=== PATIENT | male | born 1970 | race Caucasian/White ===

== ENCOUNTER 2025-03-04 23:23 | Inpatient (IN) | payer BC, SELFPAY ==
[2025-03-04 18:52] VITALS: BP 159/93
[2025-03-04 19:14] LABS: Hematocrit 46.6 % (39.0-52.0); Hemoglobin 15.9 g/dL (13.0-18.0); Mean Corp Hgb Conc. 34.1 g/dL (33.0-37.0); Mean Corpuscular Volume 86.8 fL (80.0-94.0); Nucleated Red Blood Cells % 0 % (-); Platelet Count 211 10^3/uL (130-400); Red Cell Dist. Width 12.0 % (11.5-14.5)
[2025-03-04 19:25] LABS: INR 0.94; PT 13.1 Sec (11.4-14.6)
[2025-03-04 19:35] LABS: ALT (SGPT) 29 U/L (0-50); AST (SGOT) 20 U/L (17-59); Albumin 4.9 g/dl (3.5-5.0); Alkaline Phosphatase 54 U/L (38-126); Blood Urea Nitrogen 14 mg/dl (9-20); Calcium 9.7 mg/dl (8.4-10.2); Carbon Dioxide 29 mmol/L (22-30); Chloride 102 mmol/L (98-107); Glucose 145 mg/dl (70-99); Potassium 4.3 mmol/L (3.5-5.1); Sodium 139 mmol/L (135-145); Total Protein 7.5 g/dl (6.3-8.2); eGFR > 60.00
[2025-03-04 22:06] VITALS: BP 136/82; BMI 22.5
--- NOTE | 2025-03-04 22:40 | ED.SKININJ ---
HPI-Injury
General
Chief Complaint: Skin Problem
Source: patient
Exam Limitations: none
Time Seen by Provider: 03/04/25 22:35
Nursing documentation reviewed up to this point in time: agreed with
History of Present Illness-Injury
Initial Injury comments:
54-year-old male with no significant past medical history states he was wearing flip-flops in the yard 4 days ago around noon he noticed that his left fourth toe became itchy and red. The redness and swelling gradually spread to the 2nd, 3rd and
5th toes. He went to urgent care 2 days ago and was started on doxycycline, he has had total of 6 doses and the area continues to slowly spread. Denies pain, is mildly itchy. Denies fever/chills. Feels well otherwise
He rested with the foot elevated all day yesterday
Past History
Past History
ED Past Medical History: None
ED Past Surgical History: Appendectomy
Social History
Tobacco: Non-smoker
Alcohol: Occasional
Personal:
Living: with family
Employment: Employed
Review of Systems
Review of Systems
Allergies reviewed?: Yes
All Other Systems: ROS reviewed and negative except as documented in HPI and ROS
Constitutional: Denies fever or chills
ABD/GI: Denies nausea
Skin: Reports other (Redness and swelling left foot toes 2 through 5, redness and swelling spreading up the dorsum)
Phy Exam
Physical Exam
Physical Exam:
GENERAL: No acute distress. A&Ox3.
CONSTITUTIONAL: Afebrile.
EYES: clear, conjunctivae normal
ENMT: moist mucus membranes, Pharynx nl
RESPIRATORY: Regular respirations, nonlabored, lungs clear.
CARDIOVASCULAR: Regular rate and rhythm, no murmurs, no rubs.
GI: Soft, nontender, normal BS
MUSCULOSKELETAL: Moves with ease. Well perfused.
SKIN: Warm, dry, pink. Left foot toes 2 through 5 are red, swollen, erythema and swelling spreading up the dorsal aspect of the foot to the ankle. Area marked for observation
PSYCH: Normal mood and affect. Well kept, interactive and appropriate
NEUROLOGIC: Awake, alert and oriented. No focal neurological deficits
Course
Orders/Labs/Results
Orders:
Orders
03/04/25 18:55
Foot, Left 3 View [CR Foot - Left Min 3 Views] Urgent
Comment:
Reason For Exam: cellulitis of the foot
03/04/25 19:04
Complete Blood Count/With Diff Urgent
Comprehensive Metabolic Panel Urgent
Lactic Acid Q4H
Comment: ON ICE, CANCEL 2ND ORDER IF FIRST LACTIC ACID LEVEL <2
Prothrombin Time Urgent
Blood Culture Q20M
ROBY Source: Blood/Venous
Specimen Description:
Comment: Urgent from separate sites. If patient screens positive for possible sepsis
03/04/25 19:20
Blood Culture Q20M
ROYB Source: Blood/Venous
Specimen Description:
Comment: Urgent from separate sites. If patient screens positive for possible sepsis
03/04/25 22:46
Piperacillin/Tazo 3.375 Gram [Zosyn] 3.375 gram in 50 ml IV NOW
Abnormal Lab Results
03/04/25
19:04
Absolute Monos (auto) 0.7 H 10^3/uL
(0.1-0.6)
Lymphocytes % 15.0 L %
(20.5-51.1)
Glucose 145 H mg/dl
(70-99)
03/04/25 19:04
03/04/25 19:04
Vital Signs
Initial and Last Documented VS:
Initial Vital Signs
Temp Pulse Resp BP Pulse Ox
98.7 F 100 18 159/93 98
03/04/25 18:52 03/04/25 18:52 03/04/25 18:52 03/04/25 18:52 03/04/25 18:52
Last Documented Vital Signs
Temp Pulse Resp BP Pulse Ox
98.7 F 100 18 136/82 99
03/04/25 18:52 03/04/25 18:52 03/04/25 18:52 03/04/25 22:06 03/04/25 22:46
MDM/Problems Addressed
Differential Diagnosis Includes:
Affected bug bite, cellulitis
MDM/Problems Addressed:
54-year-old male with no significant past medical history states he was wearing flip-flops in the yard 4 days ago around noon he noticed that his left fourth toe became itchy and red. The redness and swelling gradually spread to the 2nd, 3rd and
5th toes. He went to urgent care 2 days ago and was started on doxycycline, he has had total of 6 doses and the area continues to slowly spread. Denies pain, is mildly itchy. Denies fever/chills. Feels well otherwise
Afebrile, NAD
Afebrile, CBC normal, BNP normal
X-ray foot shows no bony abnormality
*Pulse Oximetry
SaO2: 99
Oxygen Mode of Delivery: Room air
Patient hypoxic: not evaluated
*Critical Care Note
Total Time (30-74mins, 75-104mins- exclusive of procedures): Not Applicable
ED Attending Note
-
Portions of this chart may have been created with voice recognition software.� Occasional wrong word or��sound alike� substitutions may have occurred due to the inherent limitations of voice recognition software.
Discharge Plan
Departure
Patient Disposition: Admit
Date of Disposition: 03/04/25
Time of Disposition: 22:49
Admit to: Med/Surg
Presentation/result/management discussed w/ accepting MD/DO: Hospitalist
Condition: Fair
Discharge Problem:
Cellulitis of left foot
Interventions
Interventions:
*Risk Screen - Suicide Last Done: 03/04/25 18:54
*General Assessment Last Done: 03/04/25 18:54
*Neglect/Abuse Screening Last Done: 03/04/25 18:54
*ED- Fall Risk Assessment Last Done: 03/04/25 22:06
*ED COVID-19 Vaccine History Last Done: 03/04/25 18:54
ED-Skin Assessment Last Done: 03/04/25 22:06
Discharge Date and Time
Print Language: WELSH
--- NOTE | 2025-03-04 22:55 | HPS.HSE ---
Addendum entered and electronically signed by Patrick Noyola MD 03/04/25 23:42:
I saw and examined the patient.
The GEOTHERMAL TECHNICIAN or PA's note was reviewed and I agree with the note.
Comment:
54M with no significant past medical history
Afebrile , WCC 8.2
Not toxic looking
Skin: Warm, IV/Catheter Site and Other (left foot with erythema and warmth to dorsal side of foot and 2nd through 5th toes with spreading towards ankle)
ASSESSMENT & PLAN
Cellulitis of left foot vs infected insect bite
- afebrile WBC 8.2, Neut 71.8
- Lt foot x-ray: No acute osseous abnormality.
- BCx pending
- empiric IV Ancef 1gm q8
- supportive care
DVT Px LMWH
Original Note:
Family Physician
-
Family Physician:
Chief Complaint
-
left foot cellulitis
History of Present Illness
Patient is a 54-year-old male with no significant past medical history who presented to [facility] ED for evaluation of worsening left foot cellulitis. Patient reports he was in yard on Sunday when he noticed some erythema and itchy to his left 4th toe.
He states that erythema and itching spread over the next 24-36 hours when he went to urgent care to be evaluated on Sunday morning and was ordered doxycycline BID, which he reports taking 6 doses. Despite antibotics erythema continues to spread now
from 2nd to 5th toe and significantly up spreading toward ankle. Denies any fever, chills, cough, shortness of breath, chest pain, nausea, vomting, constipation or diarrhea.
Medical History
Past Medical History
Past Medical History: Reports None
Past Surgical History: Reports Other
Additional Past Surgical History:
appendectomy
Social History
Tobacco: Non-smoker
Alcohol: Occasional
Drug: None
Personal:
Living: With Family
Employment: Employed
Family History
Family History: Other (Mother: breast cancer, gallbladder cancer)
Allergies / Home Medications
Allergies reflects when Allergies were last updated in [employer].
Home Medications with original date entered in [employer]
Allergy/Medication List:
Allergies
Allergy/AdvReac Type Severity Reaction Status Date / Time
No Known Allergies Allergy Unverified 03/04/25 18:54
Review of Systems
-
History Source: Patient
Constitutional: Reports No Symptoms
EENT: Reports No Symptoms
Respiratory: Reports No Symptoms
Cardiac: Reports No Symptoms
Abdomen/GI: Reports No Symptoms
: Reports No Symptoms
Musculoskeletal: Reports Other (left foot erythema and itching from 2nd toe to 5th toe and spreading towards ankle dorsally)
Skin: Reports No Symptoms
Neurological: Reports No Symptoms
Endocrine: Reports No Symptoms
Hematologic/Lymphatic: Reports No Symptoms
Psych: Reports No Symptoms
Physical Exam
Vital Signs
Vital Signs
Temp Pulse Resp BP Pulse Ox
98.7 F 100 18 136/82 99
03/04/25 18:52 03/04/25 18:52 03/04/25 18:52 03/04/25 22:06 03/04/25 22:46
Physical Exam
General: Well Developed, Well Nourished and No Apparent Distress
HEENT: NormoCephalic, Moist mucous membranes and Atraumatic
Respiratory: Clear
Cardiac: S1/S2 and Regular Rhythm
GI: Soft, Non Tender, Non Distended and Normal Bowel Sounds
Rectal: Deferred by Provider
Musculoskeletal: No Clubbing, No Cyanosis and Edema, Left Lower Extremity (mild edema to left foot )
Skin: Warm, IV/Catheter Site and Other (left foot with erythema and warmth to dorsal side of foot and 2nd through 5th toes with spreading towards ankle)
Neuro: Awake, AO x 3 and Nonfocal/grossly intact
Psych: Calm and Intact Judgment/Insight
Laboratory Results
-
03/04/25 19:04
03/04/25 19:04
Laboratory Results
PT 13.1 Sec (11.4-14.6) 03/04/25 19:04
INR 0.94 03/04/25 19:04
Lactic Acid Cancelled 03/04/25 23:00
Total Bilirubin 1.3 mg/dl (0.2-1.3) 03/04/25 19:04
AST 20 U/L (17-59) 03/04/25 19:04
ALT 29 U/L (0-50) 03/04/25 19:04
Alkaline Phosphatase 54 U/L (38-126) 03/04/25 19:04
Data Reviewed
-
Diagnostic Radiology: Report Reviewed by me (Lt foot: No acute osseous abnormality.)
Lab Data: Labs Reviewed by me (WBC 8.2, Neut 71.8, )
Impression/Plan
-
IMPRESSION/PLAN:
#cellulitis of left foot
WBC 8.2, Neut 71.8
Lt foot x-ray: No acute osseous abnormality.
Blood Cx: pending
- Admit to med/surg
- IV Ancef 1gm q8
- supportive care
Code status: full code
DVT prophylaxis: lovenox sq
[2025-03-04] MEDS: ZOSYN 50 IV (22:57)
[2025-03-04 23:00] VITALS: BP 142/95
[2025-03-05] VITALS: BP 126/79
[2025-03-05 00:30] VITALS: BP 137/79; BMI 22.2
--- NOTE | 2025-03-05 01:00 | PTCARENOTE ---
Received patient from ED at approx. 0030. Patient ambulated from stretcher to bed without assistance. AAA x 3. Call dalton in reach.
[2025-03-05] MEDS: ANCEF 5 IV ×3 (05:08→21:46)
[2025-03-05 05:21] LABS: Hematocrit 44.6 % (39.0-52.0); Hemoglobin 15.5 g/dL (13.0-18.0); Mean Corp Hgb Conc. 34.8 g/dL (33.0-37.0); Mean Corpuscular Volume 85.0 fL (80.0-94.0); Platelet Count 192 10^3/uL (130-400); Red Cell Dist. Width 12.1 % (11.5-14.5)
[2025-03-05 07:00] VITALS: BP 122/73
[2025-03-05 12:10] LABS: Glycohemoglobin (HgbA1c) 5.6 % (4.0-5.6)
--- NOTE | 2025-03-05 13:18 | W.PN.HOSP.TC ---
Today's Communication/Plan
-
Assessment / Plan
Assessment / Plan
General: No Apparent Distress, Comfortable and Conversant
HEENT: NormoCephalic, Moist mucous membranes, Atraumatic
Respiratory: Clear and Non Labored Respirations
Cardiac: S1/S2 and Regular Rhythm; No Rub or Gallop
GI: Soft, Non Tender, Non Distended and Normal Bowel Sounds
Musculoskeletal: No Edema, no deformity
Skin: Warm and dry, left foot erythema improving from outlined area at time of admission, swelling mostly resolved
: NO Dolan
Neuro: Awake, Alert, Nonfocal/grossly intact
Psych: Calm and Intact Judgment/Insight
Mr. Hylton is a 54-year-old male with no significant medical history who presented with worsening left foot cellulitis not responding to outpatient doxycycline. He first noticed erythematous left fourth toe after working in the yard on Sunday.
Also has been camping. Has not noticed any obvious skin breaks or apparent insect bites. He took 5 doses of doxycycline orally however his erythema continued to spread up his left foot towards his ankle and his left foot became swollen. He denies
any systemic symptoms such as fevers, chills, cough, or shortness of breath. He was admitted for further evaluation and management of left foot cellulitis.
Left foot cellulitis:
- Medically improving with IV Ancef, will continue for at least another 24 hours before considering transitioning to oral for discharge
- No obvious local wounds, reported edema has resolved
- Patient reports he was checked for Lyme at urgent care which was negative
- Presentation is possibly due to an insect bite, if does not improve with current treatment will check broader serologies for tickborne illness although likely futile at this point considering he has already been on antibiotics for a few days and
is improving
- Blood sugar slightly elevated, will check hemoglobin A1c
- Remains afebrile and normotensive
DVT prophylaxis: Lovenox
CODE STATUS: Full code
Total time spent on today's encounter was 35 minutes
Anticipated Discharge: 24 - 48 hours
Subjective/Interval History
-
Date of Service: March 05, 2025
Patient was seen and examined at bedside this morning. No acute events overnight and no current complaints. Left foot cellulitis appears to be dramatically improving with IV antibiotics.
Objective Data
-
Labs:
Laboratory Results
03/05/25
04:53
WBC 7.1
Hgb 15.5
Hct 44.6
Plt Count 192
Vital Signs:
Vital Signs
Temp Pulse Resp BP Pulse Ox
98.3 F 72 18 122/73 100
03/05/25 07:00 03/05/25 07:00 03/05/25 07:00 03/05/25 07:00 03/05/25 07:00
Review of Systems
-
History Source: Patient
All other systems: Reviewed and negative
Skin: Reports Other (Left foot erythema resolving)
Physical Exam
-
General: No Apparent Distress
--- NOTE | 2025-03-05 15:30 | CM ---
Patient seen bedside, initial assessment completed. Patient is a 54-year-old male with no significant past medical history who presented to [facility] ED for evaluation of worsening left foot cellulitis. Receiving IV abx
Patient resides w/ spouse, daughter and son in a 2STH, 7 steps to enter. Patient is independent w/ ambulation, no device required. Independent w/ ADLs, no DME reported. Denies SNF/HC hx.
Address, point of contact and insurance verified
PCP: Jamil Barnard
Pharmacy: [facility]
Plan: Home, no needs anticipated
[2025-03-05 15:31] VITALS: BP 123/73
[2025-03-05 22:34] VITALS: BP 127/66
[2025-03-06] MEDS: ANCEF 5 IV ×2 (05:52→14:35)
[2025-03-06 07:52] VITALS: BP 136/81
--- NOTE | 2025-03-06 12:34 | W.DCSUMMARY ---
Discharge Summary
Discharge Data
Date of Admission: 03/04/25
Date of Discharge: 03/06/25
Total time spent discharging patient (in min): 50
-
Pending Results: No
Hospital Course
Mr. Hylton is a 54-year-old male with no significant medical history who presented with worsening left foot cellulitis not responding to outpatient doxycycline. He first noticed erythematous left fourth toe on 02/28. He has not noticed any obvious
skin breaks or apparent insect bites. He was seen in urgent care, had a negative test for Lyme, and was prescribed a course of doxycycline. He took 5 doses of doxycycline orally however his erythema continued to spread up his left foot towards his
ankle and his left foot became swollen. He denied any systemic symptoms such as fevers, chills, cough, or shortness of breath. He was admitted for further evaluation and management of left foot cellulitis.
His left foot erythema and swelling dramatically improved with IV Ancef which he was continued on for 5 doses. He remained afebrile with no leukocytosis. Cultures remained negative. The area of erythema contained no purulence or fluctuance. He
was transitioned to antibiotic treatment with cefadroxil 500 mg p.o. twice daily for 5 more days to complete a 7-day course. He was medically stable for discharge to home. He will need follow-up with his primary care physician to monitor for
complete resolution of his cellulitis.
General: No Apparent Distress, Comfortable and Conversant
HEENT: NormoCephalic, Moist mucous membranes, Atraumatic
Respiratory: Clear and Non Labored Respirations
Cardiac: S1/S2 and Regular Rhythm; No Rub or Gallop
GI: Soft, Non Tender, Non Distended and Normal Bowel Sounds
Musculoskeletal: No Edema, no deformity
Skin: Warm and dry, continuing improvement of left foot erythema, swelling resolved
: NO Dolan
Neuro: Awake, Alert, Nonfocal/grossly intact
Psych: Calm and Intact Judgment/Insight
Discharge Plan
-
Patient Disposition: Home (Routine Discharge)
Discharge Diagnosis/Procedures: Left foot cellulitis
Activity Restrictions/Additional Instructions:
Mr. Hylton is a 54-year-old male with no significant medical history who presented with worsening left foot cellulitis not responding to outpatient doxycycline. He first noticed erythematous left fourth toe on 02/28. He has not noticed any obvious
skin breaks or apparent insect bites. He was seen in urgent care, had a negative test for Lyme, and was prescribed a course of doxycycline. He took 5 doses of doxycycline orally however his erythema continued to spread up his left foot towards his
ankle and his left foot became swollen. He denied any systemic symptoms such as fevers, chills, cough, or shortness of breath. He was admitted for further evaluation and management of left foot cellulitis.
His left foot erythema and swelling dramatically improved with IV Ancef which he was continued on for 5 doses. He remained afebrile with no leukocytosis. Cultures remained negative. The area of erythema contained no purulence or fluctuance. He
was transitioned to antibiotic treatment with cefadroxil 500 mg p.o. twice daily for 5 more days to complete a 7-day course. He was medically stable for discharge to home. He will need follow-up with his primary care physician to monitor for
complete resolution of his cellulitis.
Referrals:
Jamil Barnard DO [Family Provider, [facility]]
Prescriptions:
New
cefadroxil 500 mg capsule
500 mg PO BID 5 Days Qty: 10 0RF
Continued
therapeutic multivitamin Tablet
1 tab PO DAILY
ascorbic acid (vitamin C) [Vitamin C] 500 mg Tablet
500 mg PO DAILY
Discontinued
doxycycline hyclate 100 mg capsule
100 mg PO BID
Patient Comments:
03/04/2025, filled on 03/02/2025 and instructed to take 1 capsule BID for 7 days; per pt., he has taken 5 capsules since starting it.
Discharge Orders:
Discharge Patient (As Directed); Ordered 03/06/25
Ordered By: Lorenzo Martino
Discharge Date and Time
Print Language: CZECH
[2025-03-06 14:50] VITALS: BP 165/105
== END 2025-03-06 16:58 | disposition home or self-care (01) | DRG 603 ==
LOC: 4 WEST ACU 23:23
PROVIDERS: Emergency Medicine; Nurse Practitioner Family; ADMITTING PHYSICIAN Internal Medicine; ATTENDING PHYSICIAN Internal Medicine; EMERGENCY PHYSICIAN Emergency Medicine; FAMILY PHYSICIAN Family Medicine
DX: L03.116 Cellulitis of left lower limb (principal); Z80.0 Family history of malignant neoplasm of digestive organs; Z80.3 Family history of malignant neoplasm of breast
CPT/HCPCS: 73630; 80053; 83036; 83605; 85025; 85027; 85610; 87040; 96365; 99285